=== PATIENT | male | born 1985 | race Two or more races ===

== ENCOUNTER 2024-07-14 09:00 | Emergency (ER) | payer MEDICAID ==
[~2024-07-14] VITALS: Ht 180.3 cm; Wt 99.6 kg
[2024-07-14 09:28] VITALS: BP 149/94; PULSE 76; RESP 16; TEMP 98.4; O2SAT 100
[2024-07-14] MEDS ORDERED: IBUP-1455 PO (11:21)
== END 2024-07-14 11:22 | disposition home or self-care (01) ==
LOC: ER 09:00
DX: S83.8X2A Sprain of other specified parts of left knee, initial encounter (principal); Z79.899 Other long term (current) drug therapy; V28.49XA Other motorcycle driver injured in noncollision transport accident in traffic accident, initial encounter; Y93.I9 Activity, other involving external motion; Y92.89 Other specified places as the place of occurrence of the external cause; Y99.8 Other external cause status
CPT/HCPCS: 73590